=== PATIENT | male | born 1965 | race Caucasian/White ===

== ENCOUNTER 2023-01-14 15:07 | Outpatient (CLI) | payer OTHER, SELFPAY ==
--- NOTE | 2023-01-14 15:21 | ECG_ITS ---
Measurements Intervals [place] Rate: 88 P: 32 MS: 172 QRS: 7 QRSD: 85 T: 21 QT: 353 QTc: 428 Interpretive Statements SINUS RHYTHM MINIMAL VOLTAGE CRITERIA FOR LVH, CONSIDER NORMAL VARIANT NONSPECIFIC T-WAVE ABNORMALITY BORDERLINE ECG NO PREVIOUS ECG AVAILABLE FOR COMPARISON Electronically Signed On 01-14-2023 16:29:22 CDT by Ariel Ross M.D.
[2023-01-15 12:34] LABS: Rapid Plasma Reagin Non-Reactive (NonReactive)
[2023-01-16 14:18] LABS: HIV 1 2 Ag Ab 4th Gen w Rflxs Nonreactive (Nonreactive)
[2023-01-17 12:04] LABS: Hepatitis Be Antigen Nonreactive
[2023-01-17 14:47] LABS: Hepatitis C Viral RNA PCR <15 IU/mL
== END 2023-01-14 15:08 | disposition home or self-care (01) ==
LOC: ANHSURGERY 15:13
PROVIDERS: Visit Provider Urology
DX: E78.5 Hyperlipidemia, unspecified (principal); Z11.3 Encounter for screening for infections with a predominantly sexual mode of transmission; Z01.818 Encounter for other preprocedural examination; R94.31 Abnormal electrocardiogram [ECG] [EKG]
CPT/HCPCS: 36415; 86592; 87350; 87389; 87522; 93005

== ENCOUNTER 2023-01-15 02:21 | Day surgery (SDC) | payer OTHER, SELFPAY ==
[2023-01-08 14:24] VITALS: BMI 31.8
--- NOTE | 2023-01-08 14:28 | PC.NURSE ---
Report to the Outpatient Waiting Room, entrance under the green pavilion located off [facility], at time 10:00 on date 01/15/23. Planned Procedure Time: 12:00. Time changes happen often and if your time is changed the preop area will call you the afternoon before. - You and your visitor will be asked to self-screen and do not enter if you have any COVID symptoms. - Only one visitor is requested with a max of two and NO children visitors are allowed at this time. - The patient visitor may be requested to leave or wait in car when not with patient due to distancing restrictions. - A mask is optional within the hospital at this time. Patients may have clear liquids (water, carbonated beverages, clear teas, apple juice) until 3 hours prior to surgery (9:00) with a maximum of 20 ounces. - No food from midnight until time of surgery Take the following medications with a SIP of water the morning of surgery: NONE DO NOT STOP ANY OF YOUR OTHER PRESCRIPTION MEDICATIONS PRIOR TO SURGERY EXCEPT THE FOLLOWING Medications to discontinue per physician: N/A Date to take last dose: N/A Please no make-up, nail turkish, hairspray, perfume, deodorant, or body powder the day of surgery. No jewelry (including any body piercings) or valuables the day of surgery, leave them at home. Please take a shower or bath the night before, or the morning of, surgery with an antibacterial soap. Wear comfortable, loose fitting clothing. - Jewelry must be removed prior to entering the operating room. Rings and piercings that are not removed may be cut off. - The hospital will not accept responsibility for valuables. - Please leave all valuables, including medications, at home the day of surgery. If you are going home after surgery, a licensed tractor trailer moving van driver must drive you home. - NO public transportation without another adult if you receive anesthesia. - We recommend that an adult stay with you for 24 hours following discharge. - We also recommend that you do not drive, make important decision, drink alcoholic beverages, or take any drugs that were not prescribed by your health care provider for at least 24 hours after your discharge time. Follow any additional instructions given to you from your surgeon. If you or anyone in your household have experienced Covid symptoms in the past week, please notify your surgeon or the nurse liaison at the phone number below for possible testing. Telephone instructions given to PT - ERROL ECHAVARRIA and asked if any additional questions and then verbalized understanding. Patient advised to call surgeon office or pre surgery nurse liaison [phone] if any additional questions.
[2023-01-15] VITALS (7 sets, daily range): BP systolic 104–131; BP diastolic 61–91; PULSE 58–89; RESP 12–18; TEMP 36.3–36.6; O2SAT 96–100
--- NOTE | 2023-01-15 08:34 | WPDANESEPPF ---
Anes - Initial Pre Proc Eval Procedure: Operation Date: 01/15/23 12:00 Proposed Procedures p Excision and CO2 Laser Penile Condyloma - Jamie Bartlett MD Date/Time: 01/15/23 08:34 Surgeon: Jamie Bartlett MD Pre Op Diagnosis: genital warts Patient Data Age: 57 Gender: M Height: 1.79 m Weight: 102.1 kg Allergies Allergy/AdvReac Type Severity Reaction Status Date / Time No Known Allergies Allergy Verified 01/15/23 10:00 Home Medications Medication Instructions Recorded Confirmed Type risankizumab-rzaa 150 mg/mL 150 mg subcut [id number] 01/08/23 01/08/23 History subcutaneous pen injector (Skyrizi) Patient hx anesthesia problems: none Family hx anesthesia problems: none Results Review: All pre-operative results and documents have been reviewed as part of the pre-operative evaluation. [facility]LY [facility] Past Medical History Medical History (Updated 01/15/23 @ 08:35 by Yosvany Clements DO) Hyperlipidemia Psoriasis Social History Social History Smoking packs per day: 0.5 Smoking cigarettes per day: 10.0 Years smoked: 20 Smoking pack-years: 10.00 Smoking status: Former smoker Tobacco type: cigarettes Smoking end date: 10/06/18 Alcohol intake: current Alcohol use details: VERY RARE Substance use: never Substance use type: does not use Living arrangements: alone Spiritual care concerns: No Anes - Eval Final PreProcedure Day of Procedure 01/15/23 08:34 Patient weight: obese Heart: regular rate and rhythm Lungs: clear to auscultation Airway: Mallampati scale class II Neurological: alert and oriented Last oral intake: >/= 8 hours ASA classification: II Emergent: no Anesthetic plan: proceed Anesthesia type and monitoring: general LMA and standard monitoring Results Review: All pre-operative results and documents have been reviewed as part of the pre-operative evaluation. Informed Consent: The patient's anesthetic plan and its attendant risks and benefits were discussed with the patient/family/POA. Questions were solicited and answers provided to the satisfaction of the patient/family/POA.
[2023-01-15] MEDS: ACETAMINOPHEN 500 MG TABLET 1000 MG PO (10:13)
[2023-01-15] MEDS: LACTATED RINGERS 1,000 ML 30 ML IV CONT ×2 (10:23→14:48)
--- NOTE | 2023-01-15 12:21 | SUR.PREOP ---
Discussed delay with patient and girlfriend. Voices understanding.
--- NOTE | 2023-01-15 12:22 | WPDHPUPDATE1 ---
History and Physical Update Update Date/Time: 01/15/23 12:22 History and Physical has been reviewed, including an updated exam of the patient. There are NO changes in the patient's condition. Risks, benefits, and alternatives have been discussed and questions answered. Patient agrees to proceed with procedure.
--- NOTE | 2023-01-15 12:22 | PM.IMHP ---
H&P: HPI History of Present Illness Date/Time: 01/15/23 12:22 Chief Complaint: pelvic skin lesions PMFSH Past Medical History Medical History (Updated 01/15/23 @ 12:23 by Jamie Bartlett MD) Condyloma Hyperlipidemia Psoriasis Skin lesion Social History Social History Smoking packs per day: 0.5 Smoking cigarettes per day: 10.0 Years smoked: 20 Smoking pack-years: 10.00 Smoking status: Former smoker Tobacco type: cigarettes Smoking end date: 10/06/18 Alcohol intake: current Alcohol use details: VERY RARE Substance use: never Substance use type: does not use Living arrangements: alone Spiritual care concerns: No Meds Home Medications and Allergies Home Medications Medication Instructions Recorded Confirmed Type risankizumab-rzaa 150 mg/mL 150 mg subcut [id number] 01/08/23 01/08/23 History subcutaneous pen injector (Skyrizi) Allergies Allergy/AdvReac Type Severity Reaction Status Date / Time No Known Allergies Allergy Verified 01/15/23 10:00 Vital Signs Vital Signs - 24 hr 01/15/23 10:08 Temperature 36.6 C Pulse Rate 76 Respiratory Rate 16 Blood Pressure 131/86 Pulse Oximetry 97 Oxygen Delivery Room Air Exam Narrative: two large (3-4cm suprapubic skin lesions) and extensive 5-10mm penile lesions Assessment and Plan Assessment and plan (1) Skin lesion: Code(s): L98.9 - Disorder of the skin and subcutaneous tissue, unspecified Status: Acute (2) Condyloma: Code(s): A63.0 - Anogenital (venereal) warts Status: Acute Plan Extensive penile and suprapubic skin lesions. Plan excision of larger suprapubic lesions and laser/excsion of penile lesions - risks/benefits/alternatives reviewed. Pt agrees to proceed
[2023-01-15] MEDS: ceFAZolin 2 GM/D5W 50 ML 2 GM/50 ML BAG IVPB (13:12)
[2023-01-15] MEDS: BUPivacaine HCL 0.5% PF 30 ML VIAL INFILTRATE (13:16)
--- NOTE | 2023-01-15 14:50 | P.OP_ITS ---
Procedure Note - Detailed Date of Procedure 01/15/23 Pre-op Diagnosis genital warts, skin lesions Post-op Diagnosis Same Procedure Performed -excision suprapubic skin lesions, 3cm X 2 -excision and CO2 laser of extensive penile condyloma Surgeon Jamie Bartltet MD Anesthesia General Description of Procedure Informed consent was obtained. Patient taken the operating. He was induced with anesthesia. He was prepped and draped normal sterile fashion. Using 0.5% Marcaine without epinephrine we performed a penile block as well as injection subcutaneously around large suprapubic lesions. The 2 suprapubic skin lesions were then sharply excised and sent to pathology. We then irrigated the edges were then cauterized with the CO2 laser. Subcutaneous tissue was reapproximated with 3-0 Vicryl sutures and skin was reapproximated with 4-0 Monocryl interrupted sutures. There seemed to be a nice cosmetic result with these 2 lesions removed. At this point we then focused on the extensive penile and scrotal condyloma. Two civil rights representative shave biopsies were performed and sent as specimen. We then used the carbon dioxide laser to destroy these condyloma present throughout the penis and anterior scrotum. We used a power of 4 to 7 quiles. We then placed ascetic acid over all areas to assess for residual condyloma. We then again used the laser in order to destroy all residual area of condyloma. At this point under close inspection no significant lesions remained. We then placed triple antibiotic ointment overall areas of lasering. Supportive underwear was placed. Patient was then taken to recovery room in stable condition Pathology Yes Complications No immediate complications Condition Stable Disposition PACU
--- NOTE | 2023-01-15 15:12 | SUR.PHASEI ---
1512: Simple mask removed.
[2023-01-15] MEDS: oxyCODONE HCL (*CRX) 5 MG TAB IR PO (15:49)
== END 2023-01-15 16:36 | disposition home or self-care (01) ==
PROVIDERS: Visit Provider Urology
PROC: (CPT 54065; principal; 2023-01-15 12:00)
DX: L82.0 Inflamed seborrheic keratosis (principal); L82.1 Other seborrheic keratosis; E78.5 Hyperlipidemia, unspecified; L40.9 Psoriasis, unspecified; Z79.620 Long term (current) use of immunosuppressive biologic; Z87.891 Personal history of nicotine dependence; E66.9 Obesity, unspecified; Z68.29 Body mass index [BMI] 29.0-29.9, adult
CPT/HCPCS: 54065; 11403 ×2; 12032; 36415; 86592; 87350; 87389; 87522; 88305; 93005; A9270; J0690; J1100; J2250; J2370; J2405; J2704; J3010; J7120